=== PATIENT | male | born 1990 | race Caucasian/White ===

== ENCOUNTER → 2018-09-20 20:16 | Outpatient (REF) | payer SELFPAY ==
[2018-09-20 21:51] LABS: Urine N gonorrhoeae DETECTED
[2018-09-20 21:56] LABS: Urine Chlamydia DETECTED
== END ==
LOC: LAB 20:16
PROVIDERS: Visit Provider Physician Assistant
DX: Z20.2 Contact with and (suspected) exposure to infections with a predominantly sexual mode of transmission (principal)
CPT/HCPCS: 87491; 87591